=== PATIENT | female | born 1960 | race Caucasian/White ===

== ENCOUNTER → 2022-03-22 | Day surgery (SDC) | payer MEDICARE ==
[2022-03-18 15:50] LABS: BASOPHILS # (AUTO) 0.1 X10'3 (0-0.2); BASOPHILS % (AUTO) 0.7 % (0-1); EOSINOPHILS # (AUTO) 0.2 X10'3 (0-0.9); EOSINOPHILS % (AUTO) 1.8 % (0-6); LYMPHOCYTES # (AUTO) 3.2 X10'3 (1.1-4.8); LYMPHOCYTES % (AUTO) 28.1 % (21-51); MEAN CORPUSCULAR HEMOGLOBIN 25.7 PG (27.0-31.0); MEAN CORPUSCULAR HGB CONC 31.7 g/dL (33.0-36.5); MEAN CORPUSCULAR VOLUME 80.9 FL (78-98); MEAN PLATELET VOLUME 8.1 FL (7.4-10.4); MONOCYTES # (AUTO) 0.9 X10'3 (0-0.9); MONOCYTES % (AUTO) 8.1 % (2-12); NEUTROPHILS # (AUTO) 6.9 X10'3 (1.8-7.7); NEUTROPHILS % (AUTO) 61.3 % (42-75); PRE OP HEMATOCRIT 40.3 % (35.0-45.0); PRE OP HEMOGLOBIN 12.8 g/dL (12.0-16.0); PRE OP PLATELET COUNT 283 X10'3 (140-440); RED BLOOD COUNT 4.98 X10'6 (4.20-5.60); RED CELL DISTRIBUTION WIDTH 14.8 % (11.5-14.5)
[2022-03-18 16:06] LABS: ALBUMIN 3.5 G/DL (3.4-5.0); ALBUMIN/GLOBULIN RATIO 0.9 (1.1-1.5); ALKALINE PHOSPHATASE 114 IU/L (46-116); BLOOD UREA NITROGEN 15 MG/DL (7-18); BUN/CREATININE RATIO 14.6 (6.6-38.0); CALCIUM 9.4 MG/DL (8.5-10.1); CHLORIDE 104 MMOL/L (99-107); CREATININE 1.03 MG/DL (0.40-0.90); PRE OP ALT 28 U/L (30-65); PRE OP ANION GAP 9 (8-16); PRE OP AST 33 U/L (10-37); PRE OP BILIRUB, TOTAL 0.3 MG/DL (0.0-1.0); PRE OP GLUCOSE 66 MG/DL (70-104); PRE OP POTASSIUM 3.5 MMOL/L (3.4-5.1); PRE OP SODIUM 140 MMOL/L (135-145); TOTAL CARBON DIOXIDE 26.9 MMOL/L (24-32); TOTAL PROTEIN 7.5 G/DL (6.4-8.2); eGFR 54 ML/MIN
[~2022-03-22] VITALS: Ht 152.4 cm; Wt 84.1 kg
[~2022-03-22] MED LIST: BUPIVAcaine 0.5% inj/PF 30 ML ONE; BUPIVAcaine 0.5% inj/PF 30 ml vial IJ ONE; BUPR-94 PO; CYCL-1 PO; DOCUMENT DATE & TIME OF BETA-BLOCKER PO ONE; ESCI-8 PO; ESTR0.5T28 PO; FLU VACC QS2022-23(6MOS UP)/PF 60 MCG/0.5 ML SYRINGE IMVAC ONE; GABA600T13 PO; INSU100V11 SQ; INSU100V9 SQ; LIDOcaine 0.5% (5mg/ml) 50ml vial ONE; LOSA25TA96 PO; OMEP40CA21 PO; PROG100C11 PO; PROP10TA10 PO; ceFAZolin inj. 2,000 MG in dextrose 5%-water 100 ML IV ONE; famotidine 20mg tablet PO ONE; fentaNYL/PF 50MCG/1 ML 2ML syringe ONE; meperidine/PF 25mg/ml syringe IV PRN; midazolam 1 mg/ML 2ml injection IV ONE; midazolam 1 mg/ML 2ml injection ONE; morphine 2 MG/ML inj. syringe IV PRN; morphine 4 MG/ML inj SYRINge IV PRN; ondansetron/PF 4mg/2ml inj IV PRN; proCHLORperazine 10 MG/2 ml inj IV PRN; ringers solution, lactated 500 ML IV SCH; ringers solution, lacted 1,000 ML IV SCH
[2022-03-22 09:30] VITALS: BP 133/77
[2022-03-22 13:01] VITALS: BP 120/72
--- NOTE | 2022-03-22 13:01 | NUR ---
Received from OR via [facility] , accompanied by Anesthesiologist PAULA and report given by Anesthesiolgist. PATIENT WITH 20GPIV IN RIGHT WRIST THAT IS CDI. VSS. DENIES PAIN, LEFT UE IN SPLINT THAT IS CDI. FINGERS EXPOSED AND ARE PWD, NO DRAINGE TO LEFT WRIST OR THUMB AREA. Addendum: 03/22/22 at 1309 by Fabián Greenfield RN, RN Amended: Links added.
[2022-03-22 13:10] VITALS: BP 139/80
[2022-03-22 13:20] VITALS: BP 139/77
--- NOTE | 2022-03-22 13:31 | NUR ---
ALL DISCHARGE CRITERIA HAS BEEN MET. VSS, PAIN AT A TOLERABLE LEVEL, VOIDING AND ABLE TO SAFELY AMBULATE AND TRANSFER SELF. IV TAKEN OUT WITHOUT ANY COMPLICATIONS. ALL DISCHARGE INSTRUCTIONS COVERED WITH PATIENT AND ALL QUESTIONS ANSWERED. PATIENT TAKEN OUT VIA WHEELCHAIR TO PERSONAL VEHICLE WHERE FAMILY/FRIEND DROVE PATIENT HOME. SPOUSE DROVE PATIENT HOME. Addendum: 03/22/22 at 1342 by Fabián Greenfield RN, RN Amended: Links added.
== END | disposition home or self-care (01) ==
LOC: PAS 08:16
PROVIDERS: ATTEND Orthopaedic Surgery Hand Surgery
DX: G56.02 Carpal tunnel syndrome, left upper limb (principal); M18.12 Unilateral primary osteoarthritis of first carpometacarpal joint, left hand; J44.9 Chronic obstructive pulmonary disease, unspecified; I10 Essential (primary) hypertension; G43.909 Migraine, unspecified, not intractable, without status migrainosus; E11.9 Type 2 diabetes mellitus without complications; Z79.899 Other long term (current) drug therapy; Z79.4 Long term (current) use of insulin; Z88.8 Allergy status to other drugs, medicaments and biological substances; Z98.890 Other specified postprocedural states; Z90.49 Acquired absence of other specified parts of digestive tract; Z87.891 Personal history of nicotine dependence; Z23 Encounter for immunization
CPT/HCPCS: 25447; 36415; 64721; 80053; 82948; 85025; 90686; 93005; G0008; J0690; J2250; J3010; J3490; J7030; J7060; J7120; S0020; Z7506; Z7512; A4215; A4618; A7000

== ENCOUNTER 2023-07-18 09:45 | Emergency (ER) | payer MEDICARE, MEDICAID ==
[~2023-07-18] VITALS: Ht 152.4 cm; Wt 84.3 kg
[~2023-07-18 09:45] MED LIST changes: +ALBU8HFA INH; -BUPIVAcaine 0.5% inj/PF 30 ML ONE; -BUPIVAcaine 0.5% inj/PF 30 ml vial IJ ONE; -DOCUMENT DATE & TIME OF BETA-BLOCKER PO ONE; -FLU VACC QS2022-23(6MOS UP)/PF 60 MCG/0.5 ML SYRINGE IMVAC ONE; +INSU200I4 SQ; +LEVO50TA8 PO; -LIDOcaine 0.5% (5mg/ml) 50ml vial ONE; +LOSA-415 PO; -LOSA25TA96 PO; +LOSA50TA64 PO; +NEO/3.5O RIGHTEYE; +NEO/3.5O18 OP; +NOVLG SQ; +PRED5DRO23 OP; +PRIM50TA27 PO; +SEMA0.258 SQ; -ceFAZolin inj. 2,000 MG in dextrose 5%-water 100 ML IV ONE; -famotidine 20mg tablet PO ONE; -fentaNYL/PF 50MCG/1 ML 2ML syringe ONE; -meperidine/PF 25mg/ml syringe IV PRN; -midazolam 1 mg/ML 2ml injection IV ONE; -midazolam 1 mg/ML 2ml injection ONE; -morphine 2 MG/ML inj. syringe IV PRN; -morphine 4 MG/ML inj SYRINge IV PRN; -ondansetron/PF 4mg/2ml inj IV PRN; -proCHLORperazine 10 MG/2 ml inj IV PRN; -ringers solution, lactated 500 ML IV SCH; -ringers solution, lacted 1,000 ML IV SCH
[2023-07-18 09:53] VITALS: TEMP 96.3
[2023-07-18 10:41] LABS: EOSINOPHILS # (AUTO) 0.1 X10'3 (0-0.9); HEMOGLOBIN 13.4 g/dl (12.0-16.0)
[2023-07-18 10:43] LABS: BASOPHILS # (AUTO) 0.1 X10'3 (0-0.2); BASOPHILS % (AUTO) 0.3 % (0-1); EOSINOPHILS % (AUTO) 0.4 % (0-6); LYMPHOCYTES # (AUTO) 4.5 X10'3 (1.1-4.8); LYMPHOCYTES % (AUTO) 28.2 % (21-51); MEAN CORPUSCULAR HEMOGLOBIN 26.9 PG (27.0-31.0); MEAN CORPUSCULAR HGB CONC 32.7 g/dL (33.0-36.5); MEAN CORPUSCULAR VOLUME 82.2 FL (78-98); MEAN PLATELET VOLUME 8.3 FL (7.4-10.4); MONOCYTES # (AUTO) 1.3 X10'3 (0-0.9); NEUTROPHILS % (AUTO) 63.1 % (42-75); PLATELET COUNT 265 X10'3 (140-440); RED BLOOD COUNT 4.99 X10'6 (4.20-5.60); RED CELL DISTRIBUTION WIDTH 14.3 % (11.5-14.5); WHITE BLOOD COUNT 15.8 X10'3 (4.5-11.0)
[2023-07-18 11:43] LABS: ANION GAP 6 (8-16); BLOOD UREA NITROGEN 18 MG/DL (7-18); BUN/CREATININE RATIO 20.7 (10.0-20.0); CALCIUM 8.8 MG/DL (8.5-10.1); CHLORIDE 104 MMOL/L (99-107); CREATININE 0.87 MG/DL (0.40-0.90); GLUCOSE 105 MG/DL (70-104); POTASSIUM 3.5 MMOL/L (3.5-5.1); PRO BRAIN NATRIURETIC PEPTIDE 63 PG/ML (0-125); SODIUM 139 MMOL/L (135-145); TOTAL CARBON DIOXIDE 29.2 MMOL/L (24-32); eCRCL 48 ML/MIN; eGFR 66 ML/MIN
[2023-07-18 13:07] VITALS: BP 113/58; PULSE 72; RESP 17; O2SAT 95
== END 2023-07-18 15:45 | disposition home or self-care (01) ==
LOC: ER 09:46
DX: R07.89 Other chest pain (principal); E11.9 Type 2 diabetes mellitus without complications; Z88.8 Allergy status to other drugs, medicaments and biological substances; Z79.899 Other long term (current) drug therapy; Z79.84 Long term (current) use of oral hypoglycemic drugs
CPT/HCPCS: 36415; 71045; 80048; 83880; 84484; 85025; 93005; 99285